=== PATIENT | male | born 1970 | race African-American/Black ===

== ENCOUNTER 2018-01-30 08:50 | Emergency (ER) | payer OTHER ==
[~2018-01-30] VITALS: Ht 172.7 cm; Wt 90.0 kg
[~2018-01-30 08:50] MED LIST: BENZ1I IM; DIVA500T35 PO; HALO5 PO; TRAZ150 PO; TRIH5TAB2 PO; ZIPR80CA2 PO; ZOLP10TA7 PO
[2018-01-30] MEDS ORDERED: HYD25 PO (09:05)
[2018-01-30] MEDS ORDERED: DICY10I IM (09:05)
[2018-01-30] MEDS ORDERED: AMOX125T PO (09:05)
[2018-01-30 09:18] LABS: GLUCOSE,POINT OF CARE 148 MG/DL (70-110)
[2018-01-30] MEDS ORDERED: HYDROCODONE/ACETAMINOPHEN 5-325 MG TABLET PO ONE (10:15)
[2018-01-30] MEDS ORDERED: AMOXICILLIN TRIHYDRATE 250 MG CAPSULE PO ONE (10:15)
[2018-01-30] MEDS ORDERED: KETOROLAC TROMETHAMINE 60 MG/2 ML VIAL IM ONE (10:15)
[2018-01-30 10:45] VITALS: BP 138/86
== END 2018-01-30 11:05 | disposition home or self-care (01) ==
LOC: EMS 08:51
DX: K02.9 Dental caries, unspecified (principal); I20.9 Angina pectoris, unspecified; E11.9 Type 2 diabetes mellitus without complications; I11.9 Hypertensive heart disease without heart failure; F17.210 Nicotine dependence, cigarettes, uncomplicated; F12.90 Cannabis use, unspecified, uncomplicated; Z88.8 Allergy status to other drugs, medicaments and biological substances
CPT/HCPCS: 82962; 96372; 99283; J1885